=== PATIENT | male | born 1990 | race Caucasian/White ===

== ENCOUNTER 2017-01-06 05:56 | Emergency (ER) | payer BC ==
[~2017-01-06] VITALS: Ht 175.3 cm; Wt 68.0 kg
[~2017-01-06 05:56] MED LIST: AMOXICILLIN PO; BACTRIM DS TABL1 TA1 PO; FLOMAX0.4 M1 PO; GUAIFENESI1 TAB.SR . PO; NO MEDICATIONS; PERCOCET 7.5-31 EACH PO; PHENERGAN12.5 MG PO; PHENERGAN25 MG PO; PREDNISONE PO; ZOFRAN PO; ZYRTEC PO
== END 2017-01-06 07:35 | disposition home or self-care (01) ==
LOC: SED 05:56
DX: T40.1X1A Poisoning by heroin, accidental (unintentional), initial encounter (principal); F11.10 Opioid abuse, uncomplicated; F17.200 Nicotine dependence, unspecified, uncomplicated
CPT/HCPCS: 99284